=== PATIENT | female | born 1930 | race Two or more races ===

== ENCOUNTER 2019-09-03 09:51 | Emergency (ER) | payer MEDICARE, OTHER ==
[~2019-09-03] VITALS: Ht 157.5 cm; Wt 63.5 kg
--- NOTE | 2019-09-03 09:59 | Emergency Room Report ---
History of Present Illness General Chief Complaint: Multiple Trauma/Fall Source: Medical Record, EMS (David Iyer MD) Present Illness HPI Disclaimer: Please note that this report is being documented using DRAGON technology. This can lead to erroneous entry secondary to incorrect interpretation by the dictating instrument. HPI: Patient is an 89-year-old female, Farsi speaking, with a history of AAA nonruptured, hypertension, hyperlipidemia, CKD, dementia, PVD, renal artery stenosis status post stent and a chronic smoker presenting for evaluation after she was found on the floor. According to EMS, the patient was found by nursing staff next to her bed approximately 2:50 AM. Unknown when the patient was last seen. Unknown how long she was down on the ground. PMH: Hypertension, hyperlipidemia, AAA, renal artery stenosis, PVD, CKD, PSH: Renal artery stent Allergies: Denies Social Hx: Chronic smoker (David Iyer MD) Allergies: Coded Allergies: No Known Allergies (Unverified , 09/03/19) Nursing Documentation-PMH Past Medical History: No History, Except For Hx Cardiac Problems: Yes - PVD, hyperlipidemia Hx Hypertension: Yes Hx Gastrointestinal Problems: Yes - dysphagia Hx Neurological Problems: Yes - Metabolic encephalopathy, muscle weakness, dementia (David Iyer MD) Review of Systems All Other Systems: negative except mentioned in HPI (David Iyer MD) Physical Exam Vital Signs Date Time Temp Pulse Resp B/P (MAP) Pulse Ox O2 Delivery O2 Flow Rate FiO2 09/03/19 09:51 97.3 74 18 155/57 (89) 96 Room Air General: Awake and alert, no acute distress HEENT: Normocephalic, atraumatic. There are no scalp or face hematomas, lacerations or abrasions. No tenderness or soft tissue swelling over the facial bones. EOMI. PERRLA. No septal hematoma. No oral lacerations. Dentition is intact. No malocclusion Neck: Supple, trachea midline. Arrives without cervical collar Chest Wall: No tenderness, no deformity, no crepitus CV: RRR. S1 and S2 normal. No murmur appreciated Resp: Normal work of breathing. No cough, wheezing or crackles appreciated Abd: Soft, nontender, nondistended Skin: Intact. No abrasions, laceration or rash over the exposed skin MSK: Normal tone and bulk. No obvious deformity. Moving all extremities. Ambulating without difficulty. Neuro: Awake and alert. Mentating appropriately. Sensation is intact to light touch over the dermatomes of the upper and lower extremities Spine: There is no tenderness, step-off or deformity in the cervical, thoracic or lumbosacral spine. (David Iyer MD) Procedures Critical Care Time Critical Care Time Total Critical Care Time: 30 min bedside evaluation and treatment excludes procedures (EKG). Reason for critical care: Intracerebral bleed Possible complications: hypotension, hypertension, AL, shock, arrhythmias, metabolic acidosis, end organ damage, respiratory failure. Interventions: Discussion with [facility] regarding higher level of care. Repeat neurologic exams. Course: Patient presented after unwitnessed fall. Initial CT showed question of choroid plexus bleed on the right. MRI was performed. This confirmed possible choroid plexus bleed. Reassessment neurologic exam unchanged. Contact [facility] with multiple discussions. Attempt to contact family unsuccessful. Accepted by [facility] neurosurgeon. EKG reviewed. Transferred by ALS. Consultations: nursing staff, EMS, attempt to contact family, discussions with [facility] transfer and neurosurgeon Performed by: Dr. Saxena Tolerated well condition = critical but stable for transfer (Myke Saxena MD) Medical Decision Making Diagnostic Impression: Primary Impression: Fall Qualified Codes: W19.XXXA - Unspecified fall, initial encounter Additional Impression: Choroid plexus hemorrhage ER Course 89-year-old female presents for evaluation after a head injury. Will obtain CT scan of the head and broad metabolic and infectious labs to determine the cause of her fall. Will await family members to provide additional history. She has stable vital signs and is overall well-appearing. Laboratory Tests Test 09/03/19 10:00 White Blood Count 8.1 K/UL (4.8-10.8) Red Blood Count 4.09 M/UL (4.20-5.40) L Hemoglobin 12.2 G/DL (12.0-16.0) Hematocrit 37.4 % (37.0-47.0) Mean Corpuscular Volume 91 FL (80-99) Mean Corpuscular Hemoglobin 29.8 PG (27.0-31.0) Mean Corpuscular Hemoglobin Concent 32.6 G/DL (32.0-36.0) Red Cell Distribution Width 12.1 % (11.6-14.8) Platelet Count 168 K/UL (150-450) Mean Platelet Volume 6.4 FL (6.5-10.1) L Neutrophils (%) (Auto) 65.0 % (45.0-75.0) Lymphocytes (%) (Auto) 24.2 % (20.0-45.0) Monocytes (%) (Auto) 7.7 % (1.0-10.0) Eosinophils (%) (Auto) 2.5 % (0.0-3.0) Basophils (%) (Auto) 0.6 % (0.0-2.0) Sodium Level 143 MMOL/L (136-145) Potassium Level 4.5 MMOL/L (3.5-5.1) Chloride Level 106 MMOL/L (98-107) Carbon Dioxide Level 30 MMOL/L (21-32) Anion Gap 7 mmol/L (5-15) Blood Urea Nitrogen 30 mg/dL (7-18) H Creatinine 1.8 MG/DL (0.55-1.30) H Estimate Glomerular Filtration Rate mL/min (>60) Glucose Level 111 MG/DL (74-106) H Calcium Level 9.7 MG/DL (8.5-10.1) Total Bilirubin 0.3 MG/DL (0.2-1.0) Aspartate Amino Transferase (AST) 16 U/L (15-37) Alanine Aminotransferase (ALT) 15 U/L (12-78) Alkaline Phosphatase 106 U/L (46-116) Total Creatine Kinase 32 U/L (26-308) Total Protein 6.8 G/DL (6.4-8.2) Albumin 3.0 G/DL (3.4-5.0) L Globulin 3.8 g/dL Albumin/Globulin Ratio 0.8 (1.0-2.7) L (David Iyer MD) ER Course Patient signed out to me by Dr. Iyer. Patient ambulates with assistance. She has underlying dementia. There is some question on CT scan about a possible choroid plexus bleed. An MRI was performed. Patient was pretreated with Ativan successfully. MRI suggests also the choroid plexus bleed. [facility] is being contacted. Call [facility]. They are presenting. 17:45 discussed with and presented to Dr. Fernandez. Multiple questions answered for him. He requests that the CT and MRI be messenger to [facility]. He also requested that we attempt to contact family about CODE STATUS and how aggressive they want us to pursue this finding. Accepted by Dr. Pulido at [facility] to ICU. Transfer ALS. Will obtain EKG. EKG normal sinus rhythm LVH nonspecific ST T wave changes. Neurologic exam unchanged but sedated. Stable for transfer ALS. (Myke Saxena MD) EKG Diagnostic Results Rate: normal Rhythm: NSR ST Segments: no acute changes - Left ventricular hypertrophy (Myke Saxena MD) Rhythm Strip Diag. Results EP Interpretation: yes Rhythm: NSR, no PVC's, no ectopy, other (Myke Saxena MD) CT/MRI/US Diagnostic Results CT/MRI/US Diagnostic Results : Impression Final Report EXAM: CT Head Without Intravenous Contrast CLINICAL HISTORY: TRAUMA TECHNIQUE: Axial computed tomography images of the head/brain without intravenous contrast. CTDI is 62.7 mGy and DLP is 1394.9 mGy-cm. One or more of the following dose reduction techniques were used: automated exposure control, adjustment of the mA and/or kV according to patient size, use of iterative reconstruction technique. COMPARISON: None FINDINGS: Brain: No acute infarct or hemorrhage identified. No extra-axial fluid collection. No mass effect or midline shift. Scattered areas of hypoattenuation in the supratentorial white matter likely represent chronic small vessel ischemic changes. Remote lacunar infarcts in the basal ganglia. Ventricles and sulci: Prominence of the ventricles and sulci is likely secondary to cerebral volume loss. Question small amount of blood along the choroid plexus in the right lateral ventricle. Skull: Hyperostosis frontalis interna. No bony lesion or fracture. Subcutaneous tissues: Normal. Sinuses: Mild mucosal thickening in the right sphenoid sinus with hyperostosis of the sinus moore, suggesting chronic sinusitis. Mild mucosal thickening in the ethmoid air cells. Orbits: Bilateral lens implants. Other: Atherosclerotic calcifications in the intracranial vasculature. IMPRESSION: 1. Probable small amount of blood along the choroid plexus of the right lateral ventricle. No other acute intracranial abnormality identified. 2. Chronic small vessel ischemic changes and cerebral volume loss. Remote lacunar infarcts in the basal ganglia. (David Iyer MD) CT/MRI/US Diagnostic Results : Imaging Test Ordered: MRI brain Impression Comparison is made to CT head on 09 03 2019. No restricted diffusion to suggest acute infarct. Susceptibility artifact along the choroid plexus in the right lateral ventricle confirms presence of small amount of blood products. Other scattered foci of susceptibility artifact in the cerebral and cerebellar hemispheres may represent old blood products and or calcifications. Chronic small vessel ischemic disease and cerebral volume loss. Remote lacunar infarcts in the basal ganglia. Bilateral lens implants. Mucosal thickening in the ethmoid air cells and right sphenoid sinus. (Myke Saxena MD) Reevaluation Time: 13:29 Last Vital Signs Date Time Temp Pulse Resp B/P (MAP) Pulse Ox O2 Delivery O2 Flow Rate FiO2 09/03/19 09:51 97.3 74 18 155/57 (89) 96 Room Air Reevaluation Impression Labs have returned largely within normal limits. The patient does have an elevated creatinine at 1.8 however according to transfer paperwork her baseline appears to be between 1.3 and 1.5. There is a possible bleed in the right choroid plexus but will evaluate further with an MRI. The patient is stable and well-appearing otherwise with unremarkable labs. I have updated the patient 's PMD, Dr. Harris. Disposition depending on MRI results. (David Iyer MD) Last Vital Signs Date Time Temp Pulse Resp B/P (MAP) Pulse Ox O2 Delivery O2 Flow Rate FiO2 09/03/19 21:30 98.4 71 15 152/74 98 Room Air Status: unchanged (Myke Saxena MD) Disposition: XFER SHT-TRM HOSP - higher level of care Condition: Critical David Iyer MD Sep 03, 2019 09:59 Myke Saxena MD Sep 03, 2019 17:11
[2019-09-03] MEDS ORDERED: AMLODIPINE BESYL5 MG ORAL (10:00)
[2019-09-03] MEDS ORDERED: DOCUSATE SODIU100 MG ORAL (10:00)
[2019-09-03] MEDS ORDERED: ACETAMINOPHEN325 M1 ORAL (10:00)
[2019-09-03] MEDS ORDERED: COREG12.5 MG ORAL (10:00)
[2019-09-03] MEDS ORDERED: COZAAR25 MG ORAL (10:00)
[2019-09-03] MEDS ORDERED: ASPIR 8181 MG ORAL (10:00)
[2019-09-03] MEDS ORDERED: HEPARIN SO5000 UNIT2 SUBQ (10:00)
[2019-09-03] MEDS ORDERED: CLONIDINE1 EAC1 TD (10:00)
[2019-09-03] MEDS ORDERED: BISACODYL10 M1 RC (10:00)
[2019-09-03] MEDS ORDERED: VITAMIN D250000 UNI1 ORAL (10:00)
[2019-09-03] MEDS ORDERED: SENNOSIDES8.6 MG ORAL (10:01)
[2019-09-03] MEDS ORDERED: HYDRALAZINE HCL25 M1 ORAL (10:01)
[2019-09-03 10:05] VITALS: BP 145/83
--- NOTE | 2019-09-03 10:05 | NUR ---
ED Nurse Note: PT AAOX1, VSS, NO ACUTE DISTRESS. Brought in by ambulance from [facility]; patient was found on the floor ~ 0250 today; possible fall injury; patient is on ASA and Heparin. Patient c/o pain over the righ head. ECCYMOSIS ON THE LEFT KNEE. NO OTHER SKIN ISSUES.
[2019-09-03 10:16] LABS: BASOPHILS % (AUTO) 0.6 % (0.0-2.0); EOSINOPHILS % (AUTO) 2.5 % (0.0-3.0); HEMATOCRIT 37.4 % (37.0-47.0); HEMOGLOBIN 12.2 G/DL (12.0-16.0); LYMPHOCYTES % (AUTO) 24.2 % (20.0-45.0); MEAN CORPUSCULAR VOLUME 91 FL (80-99); MONOCYTES % (AUTO) 7.7 % (1.0-10.0); PLATELET COUNT 168 K/UL (150-450); RED BLOOD COUNT 4.09 M/UL (4.20-5.40); RED CELL DISTRIBUTION WIDTH 12.1 % (11.6-14.8); WHITE BLOOD COUNT 8.1 K/UL (4.8-10.8)
[2019-09-03 10:56] LABS: ANION GAP 7 mmol/L (5-15); BLOOD UREA NITROGEN 30 mg/dL (7-18); CALCIUM 9.7 MG/DL (8.5-10.1); CARBON DIOXIDE 30 MMOL/L (21-32); CHLORIDE 106 MMOL/L (98-107); CREATININE 1.8 MG/DL (0.55-1.30); POTASSIUM 4.5 MMOL/L (3.5-5.1); SODIUM 143 MMOL/L (136-145)
[2019-09-03 11:06] LABS: ALANINE AMINOTRANSFERASE 15 U/L (12-78); ALBUMIN/GLOBULIN RATIO 0.8 (1.0-2.7); ALKALINE PHOSPHATASE 106 U/L (46-116); BILIRUBIN,TOTAL 0.3 MG/DL (0.2-1.0); CREATINE KINASE 32 U/L (26-308)
[2019-09-03 11:19] LABS: ASPARTATE AMINO TRANSFERASE 16 U/L (15-37)
[2019-09-03] MEDS ORDERED: DiphenhydrAMINE 50mg/ml Inj IVP ONE (14:30)
--- NOTE | 2019-09-03 14:51 | Diagnostic Imaging Report ---
EXAM: CT Head Without Intravenous Contrast CLINICAL HISTORY: TRAUMA TECHNIQUE: Axial computed tomography images of the head brain without intravenous contrast. CTDI is 62.7 mGy and DLP is 1394.9 mGy-cm. One or more of the following dose reduction techniques were used: automated exposure control, adjustment of the mA and or kV according to patient size, use of iterative reconstruction technique. COMPARISON: None FINDINGS: Brain: No acute infarct or hemorrhage identified. No extra-axial fluid collection. No mass effect or midline shift. Scattered areas of hypoattenuation in the supratentorial white matter likely represent chronic small vessel ischemic changes. Remote lacunar infarcts in the basal ganglia. Ventricles and sulci: Prominence of the ventricles and sulci is likely secondary to cerebral volume loss. Question small amount of blood along the choroid plexus in the right lateral ventricle. Skull: Hyperostosis frontalis interna. No bony lesion or fracture. Subcutaneous tissues: Normal. Sinuses: Mild mucosal thickening in the right sphenoid sinus with hyperostosis of the sinus moore, suggesting chronic sinusitis. Mild mucosal thickening in the ethmoid air cells. Orbits: Bilateral lens implants. Other: Atherosclerotic calcifications in the intracranial vasculature. IMPRESSION: 1. Probable small amount of blood along the choroid plexus of the right lateral ventricle. No other acute intracranial abnormality identified. 2. Chronic small vessel ischemic changes and cerebral volume loss. Remote lacunar infarcts in the basal ganglia.
[2019-09-03] MEDS ORDERED: LORazepam Inj 2mg/ml 1ml IV ONE (15:30)
--- NOTE | 2019-09-03 16:30 | NUR ---
ED Nurse Note: back from MRI
--- NOTE | 2019-09-03 16:44 | Diagnostic Imaging Report ---
Indication: Headache, trauma, altered mental status, abnormal CT scan Technique: sagittal T1 fast spin echo, axial T1 FLAIR, axial T2 FLAIR, axial T2 FS PROPELLER, axial T2* GRE, axial diffusion weighted images. ADC and exponential ADC maps generated Comparison: CT scan performed 6 hours earlier Findings: There is a small apparent focus of restricted diffusion in the area of the genu of the right internal capsule. However, this appears to be high signal on the ADC maps so this is probably an area of so-called T2 shine through related to an old lacunar infarct. No other foci of restricted diffusion are demonstrated. Susceptibility artifact is seen along the choroid plexus of the right lateral ventricular atrium, corresponding to the abnormality described on recent CT scan. There is also some abnormal high T2 FLAIR signal in this area. Numerous other foci of susceptibility artifact are seen in the bilateral left greater than right basal ganglia, in the bilateral temporal lobes, and in the bilateral cerebellar hemispheres. No mass effect nor midline shift. There is age-related enlargement of the ventricles and extra axial CSF spaces. There is extensive confluent periventricular deep white matter high T2 signal. There is evidence of prior bilateral cataract surgery. There is bilateral ethmoid sinus disease. The vascular flow voids are preserved. Old lacunar infarcts are seen in the bilateral basal ganglia. Impression: Small area of susceptible artifact and abnormal T2 FLAIR signal in the region of the right lateral ventricular choroid plexus confirming the presence of acute blood reported initially on prior CT scan. Multiple foci of susceptibility artifact as described, consistent with old microbleeds Chronic and age-related changes, as described, including age-related volume loss and fairly extensive periventricular deep white matter chronic ischemic change Sinus disease Apparent restricted diffusion in the right internal capsule probably represents artifact from so-called T2 shine through rather than an acute infarct This agrees with the preliminary interpretation provided overnight by [facility].
--- NOTE | 2019-09-03 19:15 | NUR ---
HAND-OFF: Report given to THAIS VELA.
[2019-09-03 19:30] VITALS: BP 166/56
--- NOTE | 2019-09-03 19:30 | NUR ---
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
--- NOTE | 2019-09-03 21:00 | NUR ---
ED Nurse Note: Pt continues to rest in bed, incontinent of urine, pt given complete bath and linen change, no distress or changes noted, iv site patent and wrapped with kerlix for support, v/s stable, mildly high b/p, is aware, pt has ambulance ETA fopr transport, [facility] called and given 1 more hour, spoke with pt daughter on phone whom called and informed her of transfer and gave room info at [facility], will continue to closely monitor while waiting for transport.
[2019-09-03 21:30] VITALS: BP 152/74
--- NOTE | 2019-09-03 22:35 | NUR ---
ED Nurse Note: [facility] ambulance has arrived for transport, rig#[id number], verbal report and all transfer info given to THAIS Rhodes, pt being transported via gurney on critical care transport, report called to [facility] at [phone], report given to THAIS Mccrary, nad noted during pt transpsort.
[2019-09-03 22:40] VITALS: BP 152/74
== END 2019-09-03 22:40 | disposition short-term general hospital (02) ==
LOC: EDBD 09:51 → EMR 14:10 → EDBEDREQ 15:36 → EMR 22:40
DX: H31.301 Unspecified choroidal hemorrhage, right eye (principal); I63.81 Other cerebral infarction due to occlusion or stenosis of small artery; F03.90 Unspecified dementia, unspecified severity, without behavioral disturbance, psychotic disturbance, mood disturbance, and anxiety; I51.7 Cardiomegaly; I10 Essential (primary) hypertension; E78.5 Hyperlipidemia, unspecified; I73.9 Peripheral vascular disease, unspecified; F17.200 Nicotine dependence, unspecified, uncomplicated; I12.9 Hypertensive chronic kidney disease with stage 1 through stage 4 chronic kidney disease, or unspecified chronic kidney disease; N18.9 Chronic kidney disease, unspecified
CPT/HCPCS: 36415; 70450; 70551; 80053; 82550; 85025; 93005; 96361; 96374; 96375; 99284; J1200; J7030